=== PATIENT | male | born 1945 | race Caucasian/White ===

== ENCOUNTER 2019-02-27 06:26 | Emergency (ER) | payer MEDICARE, OTHER ==
[~2019-02-27] VITALS: Ht 182.9 cm; Wt 73.8 kg
[2019-02-27] MEDS ORDERED: METO10TA81 PO (07:03)
[2019-02-27] MEDS ORDERED: MAGN296S9 PO (07:03)
--- NOTE | 2019-02-27 07:03 | PHYS DOC ---
Past History Past Medical History: Cancer, High Cholesterol Past Surgical History: Appendectomy, Colectomy, Other Additional Past Surgical Histo: shoulder, back, right inguinal hernia Smoking: Non-smoker Alcohol Use: None Drug Use: None Adult General Chief Complaint Chief Complaint: CONSTIPATION HPI HPI Patient is a 73-year-old male presents complaining of constipation for the past week. He does have a long-standing history of constipation. He is still passing flatus. No vomiting. Some nausea. No rectal bleeding. Patient has a history of previous resection for colon cancer. Patient has also been losing weight to [place] because he is going through a divorce. Patient notes that he is eating a lot of ice cream, no relief with MiraLAX nor milk of Magnesia. He has not seen his primary care physician for this. Denies any significant abdominal pain.[] Review of Systems Review of Systems Constitutional: Denies fever or chills [] Eyes: Denies change in visual acuity, redness, or eye pain [] HENT: Denies nasal congestion or sore throat [] Respiratory: Denies cough or shortness of breath [] Cardiovascular: No chest pain or palpitations[] GI: See history of present illness[] : Denies dysuria or hematuria [] Musculoskeletal: Denies back pain or joint pain [] Integument: Denies rash or skin lesions [] Neurologic: Denies headache, focal weakness or sensory changes [] Endocrine: Denies polyuria or polydipsia [] All other systems were reviewed and found to be within normal limits, except as documented in this note. Physical Exam Physical Exam Constitutional: Well developed, well nourished, no acute distress, non-toxic appearance. [] HENT: Normocephalic, atraumatic, bilateral external ears normal, oropharynx moist, no oral exudates, nose normal. [] Eyes: PERRLA, EOMI, conjunctiva normal, no discharge. [] Neck: Normal range of motion, no tenderness, supple, no stridor. [] Cardiovascular:Heart rate regular rhythm, no murmur [] Lungs & Thorax: Bilateral breath sounds clear to auscultation [] Abdomen: Bowel sounds normal, soft, no tenderness, no masses, no pulsatile masses. [] Skin: Warm, dry, no erythema, no rash. [] Back: No tenderness, no CVA tenderness. [] Extremities: No tenderness, no cyanosis, no clubbing, ROM intact, no edema. [] Neurologic: Alert and oriented X 3, normal motor function, normal sensory function, no focal deficits noted. [] Psychologic: Affect normal, judgement normal, mood normal. [] EKG EKG [] Radiology/Procedures Radiology/Procedures [] Course & Med Decision Making Course & Med Decision Making Pertinent Labs and Imaging studies reviewed. (See chart for details) Medical decision making: Patient with constipation without evidence of an obs truction. Will attempt magnesium citrate and a promotility agent to assist with bowel movements. Patient instructed to increase fiber in his diet which seems to be lacking given that he is eating "as much ice cream as possible."[] Dragon Disclaimer Dragon Disclaimer This electronic medical record was generated, in whole or in part, using a voice recognition dictation system. Departure Departure: Impression: Primary Impression: Constipation Disposition: HOME, SELF-CARE Condition: IMPROVED Referrals: PCP,SHAHNAZ (PCP) Patient Instructions: Constipation, Adult Additional Instructions: Follow-up with your regular physician in 2 days. If you do not have a regular physician a list of local clinics will be provided for you. Increase fluid intake. Also increase the amount of fiber in your diet. One way to do this is to eat a cereal that has "bran" or "fiber" in the name. Also increase the amount of fresh fruit and vegetables in your diet. Return to the ER if unable to tolerate liquids or any other concerns. Scripts Magnesium Citrate (MAGNESIUM CITRATE) 296 Ml Solution 296 ML PO ONCE for constipation, #296 ML Prov: MIRIAM BRICEÑO DO 02/27/19 Metoclopramide Hcl (REGLAN) 10 Mg Tablet 10 MG PO QID for nausea and vomiting, #30 TAB Prov: MIRIAM BRICEÑO DO 02/27/19 Problem Qualifiers Primary Impression: Constipation Constipation type: unspecified constipation type Qualified Codes: K59.00 - Constipation, unspecified MIRIAM BRICEÑO DO Feb 27, 2019 07:03
[2019-02-27] MEDS ORDERED: MAGNESIUM CITRATE 296 ML SOLUTION. PO ONE (07:15)
[2019-02-27 07:20] VITALS: BP 137/68
== END 2019-02-27 07:25 | disposition home or self-care (01) ==
LOC: ER 06:26
DX: K59.00 Constipation, unspecified (principal); E78.00 Pure hypercholesterolemia, unspecified; Z90.89 Acquired absence of other organs; Z90.49 Acquired absence of other specified parts of digestive tract
CPT/HCPCS: 99284